=== PATIENT | male | born 1990 | race Caucasian/White ===

== ENCOUNTER 2016-12-13 21:45 | Emergency (ER) | payer OTHER ==
--- NOTE | 2016-12-13 23:10 | ED ---
Throat Pain/Nasal Congestion - HPI Summary HPI Summary: 26 male presents with complaints of an eye injury to his right eye after having a pen thrown at his eye while playing a game of "[employer]" just prior to arrival on 12/13/16. Patient denies any vision changes, loss or blurred vision out of his right eye. Admits to eye redness and feeling of being scratched. Denies left eye problems. Is not currently in any pain. Does wear contacts and took them out after injury occurred. - History of Current Complaint Chief Complaint: EDEyeProblem Time Seen by Provider: 12/13/16 22:15 Hx Obtained From: Patient Onset/Duration: Sudden Onset Severity: Mild Associated Signs And Symptoms: Positive: FB Sensation - in eye "scratched" - Allergies/Home Medications Allergies/Adverse Reactions: Allergies Allergy/AdvReac Type Severity Reaction Status Date / Time No Known Allergies Allergy Verified 12/13/16 21:55 PMH/Surg Hx/FS Hx/Imm Hx Endocrine/Hematology History: Denies: Hx Diabetes Respiratory History: Denies: Hx Asthma - Surgical History Hx Anesthesia Reactions: No - Immunization History Immunizations Up to Date: Yes Infectious Disease History: No Infectious Disease History: Denies: Traveled Outside the [place] in Last 30 Days - Family History Known Family History: Positive: None - Social History Alcohol Use: Occasionally Substance Use Type: Reports: Marijuana Substance Use Comment - Amount & Last Used: today Smoking Status (MU): Never Smoked Tobacco Review of Systems Constitutional: Negative Positive: Erythema. Negative: Photophobia, Blurred Vision, Diplopia, Drainage ENT: Negative Cardiovascular: Negative Respiratory: Negative Neurological: Negative Psychological: Normal All Other Systems Reviewed And Are Negative: Yes Physical Exam Triage Information Reviewed: Yes Vital Signs On Initial Exam: Initial Vitals Temp Pulse Resp BP Pulse Ox 97.7 F 74 16 119/77 98 12/13/16 21:51 12/13/16 21:51 12/13/16 21:51 12/13/16 21:51 12/13/16 21:51 Vital Signs Reviewed: Yes Appearance: Positive: Well-Appearing, No Pain Distress, Well-Nourished Skin: Positive: Warm, Skin Color Reflects Adequate Perfusion, Dry Head/Face: Positive: Normal Head/Face Inspection Eyes: Positive: EOMI, VANESSA, Conjunctiva Inflammed - subconjunctival injection noted on right eye medial sclera. iris and pupil not involved and without injury. normal fundoscopic exam b/l eyes. .25 cm LxW abrasion in a square shape observed without flurosein and or slit lamp. injury was apparent without further use of equipment. visual acuity normal. no hyphema.. Negative: Discharge ENT: Positive: Normal ENT inspection, Hearing grossly normal, Pharynx normal, TMs normal Neck: Positive: Supple, Nontender Respiratory/Lung Sounds: Positive: Clear to Auscultation, Breath Sounds Present Cardiovascular: Positive: Normal, RRR, Pulses are Symmetrical in both Upper and Lower Extremities Musculoskeletal: Positive: Strength/ROM Intact Neurological: Positive: Normal, Sensory/Motor Intact, Alert, Oriented to Person Place, Time, CN Intact II-III Psychiatric: Positive: Normal Diagnostics - Vital Signs Vital Signs Temp Pulse Resp BP Pulse Ox 12/13/16 21:51 97.7 F 74 16 119/77 98 - Laboratory Lab Statement: Any lab studies that have been ordered have been reviewed, and results considered in the medical decision making process. EENT Course/Dx - Course Course Of Treatment: discussed patient with dr main who agreed with antibiotic drop treament and follow up with opthamology due to no current vision changes and no pain. patient is aware of worsening symptoms and importance of following up with optho. also told not to use contacts until symptoms have resolved and cleared by optho. fundoscopic exam normal. no need for use of slit lamp due to a superficial injury. no hyphema. - Differential Diagnoses Differential Diagnoses: Corneal Abrasion, Foreign Body, Penetrating Injury - Diagnoses Provider Diagnoses: Abrasion of sclera of right eye, Subconjunctival hemorrhage of right eye - Provider Notifications Discussed Care of Patient with: Dr Main Discharge - Discharge Plan Condition: Stable Disposition: HOME Patient Education Materials: Subconjunctival Hemorrhage (ED) Referrals: Joseph Vega MD [Medical Doctor] - [facility] [Outside] Additional Instructions: Use prescribed eye drops for eye as every 2 hours for 7 days. Follow up with opthamology to ensure proper improvement. If symptoms worsen or do not improve such as increasing blood in eye, fever/chills, loss of vision, changes in vision or swelling please seek medical attention promptly. Addendum entered and electronically signed by Chnya Horvath PA 12/14/16 01: 55: ED Addendum Addendum: dispensed ciprofloxacin to use at home for 7 days in right eye.
[2016-12-13 23:47] VITALS: BP 125/79
[2016-12-14] MEDS ORDERED: Ciprofloxacin 0.3% OPTH.SOL* 2.5 ML BTL RIGHT EYE SCH
== END 2016-12-13 23:44 | disposition home or self-care (01) ==
LOC: ED 21:45
DX: S00.211A Abrasion of right eyelid and periocular area, initial encounter (principal); H11.31 Conjunctival hemorrhage, right eye; L53.9 Erythematous condition, unspecified; W22.8XXA Striking against or struck by other objects, initial encounter; Y93.9 Activity, unspecified; Y92.9 Unspecified place or not applicable; Y99.9 Unspecified external cause status
CPT/HCPCS: 99282; A9270-GY